=== PATIENT | female | born 1990 | race Hispanic/Latino ===

== ENCOUNTER 2017-09-24 10:55 | Emergency (ER) | payer BC, SELFPAY | END 2017-09-24 12:22 | disposition home or self-care (01) | LOC: ERS 10:55 | DX: N64.4 Mastodynia (principal); F17.210 Nicotine dependence, cigarettes, uncomplicated | CPT/HCPCS: 99283 ==

== ENCOUNTER 2018-01-06 18:50 | Emergency (ER) | payer SELFPAY ==
[~2018-01-06 18:50] MED LIST: ISOVUE-370 76%-LOCM 1 ML ONE
[2018-01-06 19:44] LABS: Bilirubin Negative (Negative); Blood, Urine Negative (Negative); Clarity CLEAR (Clear); Glucose, Urine (Dipstick) Negative (Negative); Leukocyte Negative (Negative); Nitrite Negative (Negative); Protein, Urine (Dipstick) Negative (Neg-Trace); Specific Gravity, Urine 1.016 (1.002-1.036); Urobilinogen 0.2 mg/dL (0.2-1.0)
[2018-01-06] MEDS ORDERED: Ondansetron ODT 8 MG TAB ONE (19:44)
[2018-01-06 19:53] LABS: Pregnancy Test - Urine (BHCG) Negative (Negative)
[2018-01-06 19:54] LABS: Pregu Control Background? CLEAR/WHITE (CLR/WHITE); Pregu Control Bar Appear? YES (CONTROL BAR); Specific Gravity 1.016 (1.002-1.036)
[2018-01-06 19:56] LABS: #Basophils 0.1 thou/uL (0.0-0.2); #Eosinphils 0.1 thou/uL (0.0-0.7); #Lymphocytes 3.8 thou/uL (1.20-3.40); #Monocytes 0.8 thou/uL (0.11-0.59); #Neutrophils 9.3 thou/uL (1.40-6.50); %Basophils 0.5 % (0.0-1.0); %Eosinophils 0.6 % (0.0-10.0); %Lymphocytes 27.1 % (21.0-51.0); %Monocytes 5.9 % (0.0-10.0); Hemoglobin 13.9 g/dL (12.0-16.0); Mean Corpuscular HGB CONC 32.8 g/dL (32.0-36.0); Mean Corpuscular Hemoglobin 27.1 pg (27.0-31.0); Mean Corpuscular Volume 82.8 fl (81.0-99.0); Mean Platelet Volume 7.6 fL (7.4-10.4); Platelet Count 358 thou/uL (130-400); RBC Distribution Width 13.1 % (11.5-14.5); Red Blood Cell (RBC) Count 5.11 mill/uL (4.20-5.40); White Blood Cell (WBC) Count 14.1 thou/uL (4.8-10.8)
[2018-01-06 20:17] LABS: ALT (SGPT) 17 U/L (8-55); AST (SGOT) 18 U/L (5-34); Albumin 4.3 g/dL (3.5-5.0); Alkaline Phosphatase 108 U/L (40-150); Anion Gap 11 mmol/L (10-20); BUN (Urea Nitrogen) 13 mg/dL (7.0-18.7); Bilirubin, Total 0.2 mg/dL (0.2-1.2); Calc. Creatinine Clearance 0 mL/min (70-130); Calcium 9.5 mg/dL (7.8-10.44); Carbon Dioxide 26 mmol/L (22-29); Chloride 106 mmol/L (98-107); Estimated GFR-MDRD Greater than 90; Globulin 3.1 g/dL (2.4-3.5); Glucose 92 mg/dL (70-105); Potassium 3.9 mmol/L (3.5-5.1); Protein, Total 7.4 g/dL (6.0-8.3); Sodium 139 mmol/L (136-145)
[2018-01-06] MEDS ORDERED: Ketorolac Tromethamine 30 MG/ML VIAL ONE (21:26)
--- NOTE | 2018-01-06 22:33 | ULT ---
PELVIC ULTRASOUND 01/06/18 COMPARISON: None. HISTORY: Left lower quadrant abdominal pain with fever and nausea. TECHNIQUE: Multiplanar pedroza scale and color doppler images were obtained in a transabdominal pelvic ultrasound. Spectral analysis of the doppler waveforms of the ovaries were performed. FINDINGS: The uterus is normal in size and appears without focal abnormality. the endometrial stripe is normal in thickness measuring 5 mm. No free fluid is seen in the pelvis. Both ovaries are normal in size and appearance and demonstrate n ormal internal flow. IMPRESSION: No significant pelvic abnormality. POS: [facility]
--- NOTE | 2018-01-06 23:01 | CT ---
CT ABDOMEN AND PELVIS WITH CONTRAST 01/06/18 COMPARISON: 06/20/11 HISTORY: Abdominal pain in the left lower quadrant that shoots to upper abdomen and down her leg. TECHNIQUE: Multiple contiguous axial images were obtained in a CT of the abdomen and pelvis with contrast. Coron al reformats were performed. FINDINGS: The liver, gallbladder, kidneys, adrenal glands, spleen, and pancreas are unremarkable. No free air, free fluid, or stranding changes seen in the abdomen or pelvis. There may be a few scattered diverticula in the colon. The small bowel and appendix are unremarkable. The reproductive organs are unremarkable. No abdominal or pelvic lymphadenopathy are seen. There is a genital piercing and bilateral nipple piercings, incidentally seen. The abdominal wall sof t tissue and visualized inferior thorax are otherwise unremarkable. The bones are unremarkable. IMPRESSION: No evidence of acute intra-abdominal/pelvic abnormality. POS: [facility]
== END 2018-01-06 23:34 | disposition home or self-care (01) ==
LOC: ERS 18:50
DX: N76.0 Acute vaginitis (principal); F17.210 Nicotine dependence, cigarettes, uncomplicated
CPT/HCPCS: 74177; 76856; 80053; 81003; 81025; 85025; 87086; 87480; 87491; 87510; 87591; 87660; 93976; 96361; 96374; J1885

== ENCOUNTER 2020-04-10 18:32 | Emergency (ER) | payer OTHER ==
[2020-04-10] MEDS ORDERED: Ketorolac Tromethamine 30 MG/ML VIAL ONE (19:32)
--- NOTE | 2020-04-10 19:32 | RAD ---
Exam:3 views left ankle HISTORY: Pain. COMPARISON: 09/09/2002 FINDINGS: Lateral soft tissue swelling. Intact ankle mortise. No fracture or cortical irregularity or periosteal reaction IMPRESSION: Lateral soft tissue swelling, without fracture.
== END 2020-04-10 19:43 | disposition home or self-care (01) ==
LOC: ERS 18:32
DX: S93.402A Sprain of unspecified ligament of left ankle, initial encounter (principal); Z87.891 Personal history of nicotine dependence; X50.9XXA Other and unspecified overexertion or strenuous movements or postures, initial encounter
CPT/HCPCS: 96372; J1885

== ENCOUNTER 2020-05-23 01:14 | Emergency (ER) | payer OTHER ==
[2020-05-23] MEDS ORDERED: Boostrix 0.5 ML (Tdap) VIAL ONE (01:43)
== END 2020-05-23 01:57 | disposition home or self-care (01) ==
LOC: ERS 01:14
DX: S01.511A Laceration without foreign body of lip, initial encounter (principal); F17.210 Nicotine dependence, cigarettes, uncomplicated; Y04.2XXA Assault by strike against or bumped into by another person, initial encounter
CPT/HCPCS: 90471; 90715

== ENCOUNTER 2021-04-15 08:22 | Emergency (ER) | payer OTHER ==
[2021-04-15] MEDS ORDERED: Dexamethasone 10 MG/ML VIAL ONE (08:46)
== END 2021-04-15 09:02 | disposition home or self-care (01) ==
LOC: ERS 08:22
DX: L50.9 Urticaria, unspecified (principal); F17.210 Nicotine dependence, cigarettes, uncomplicated
CPT/HCPCS: 96372; 99283; J1100

== ENCOUNTER 2021-06-28 18:02 | Emergency (ER) | payer SELFPAY ==
[2021-06-28] MEDS ORDERED: Methocarbamol 500 MG TAB PO SCH (19:30)
== END 2021-06-28 20:31 | disposition home or self-care (01) ==
LOC: ERS 18:02
DX: M54.16 Radiculopathy, lumbar region (principal); F17.210 Nicotine dependence, cigarettes, uncomplicated
CPT/HCPCS: 99283

== ENCOUNTER 2022-10-09 20:45 | Emergency (ER) | payer OTHER, SELFPAY | END 2022-10-10 00:37 | disposition left against medical advice (07) | LOC: ERS 20:45 | DX: Z53.21 Procedure and treatment not carried out due to patient leaving prior to being seen by health care provider (principal) ==

== ENCOUNTER 2023-04-30 20:40 | Emergency (ER) | payer OTHER ==
[2023-04-30] MEDS ORDERED: Mag-Al 1200 mg/1200 mg/30 ML UDCUP ONE (21:36)
[2023-04-30] MEDS ORDERED: Aspirin Chewable 81 MG TAB ONE (21:36)
[2023-04-30 21:41] LABS: #Basophils 0.1 thou/uL (0.0-0.2); #Eosinphils 0.3 thou/uL (0.0-0.7); #Monocytes 0.8 thou/uL (0.11-0.59); #Neutrophils 7.5 thou/uL (1.40-6.50); %Basophils 0.6 % (0.0-1.0); %Eosinophils 2.2 % (0.0-10.0); %Lymphocytes 29.7 % (21.0-51.0); %Monocytes 6.2 % (0.0-10.0); %Neutrophils 61.1 % (42.0-75.0); Hematocrit 41.6 % (36.0-47.0); Hemoglobin 13.7 g/dL (12.0-16.0); Mean Corpuscular HGB CONC 32.9 g/dL (32.0-36.0); Mean Corpuscular Hemoglobin 27.8 pg (27.0-31.0); Mean Corpuscular Volume 84.4 fl (78.0-98.0); Mean Platelet Volume 10.2 fL (7.4-10.4); Platelet Count 373 10x3/uL (130-400); RBC Distribution Width 13.2 % (11.5-14.5); Red Blood Cell (RBC) Count 4.93 mill/uL (4.20-5.40); White Blood Cell (WBC) Count 12.2 10x3/uL (4.8-10.8)
[2023-04-30] MEDS ORDERED: Lidocaine 2% Viscous Solution 10 ML, Aluminum & Magnesium Hydroxide 30 ML SSW SCH (21:45)
[2023-04-30 22:08] LABS: ALT (SGPT) 24 U/L (8-55); AST (SGOT) 18 U/L (5-34); Albumin 3.9 g/dL (3.5-5.0); Alkaline Phosphatase 101 U/L (40-110); Anion Gap 13 mmol/L (10-20); BUN (Urea Nitrogen) 15 mg/dL (7.0-18.7); Bilirubin, Total Less than 0.2 mg/dL (0.2-1.2); Calc. Creatinine Clearance 0 mL/min (70-130); Calcium 9.5 mg/dL (7.8-10.44); Carbon Dioxide 22 mmol/L (22-29); Chloride 106 mmol/L (98-107); Estimated GFR 109; Globulin 2.5 g/dL (2.4-3.5); Glucose 99 mg/dL (70-105); Potassium 4.2 mmol/L (3.5-5.1); Protein, Total 6.4 g/dL (6.0-8.3); Sodium 137 mmol/L (136-145)
[2023-04-30 22:12] LABS: Troponin I Less than 0.010 ng/mL (< 0.028)
[2023-04-30] MEDS ORDERED: Ketorolac Tromethamine 30 MG/ML VIAL ONE (22:51)
== END 2023-04-30 23:07 | disposition home or self-care (01) ==
LOC: ERS 20:40
DX: R07.9 Chest pain, unspecified (principal); R10.13 Epigastric pain; R10.11 Right upper quadrant pain
CPT/HCPCS: 71045; 76705; 80053; 84484; 85025; 93005; 96374; J1885

== ENCOUNTER 2024-06-06 07:04 | Emergency (ER) | payer MEDICAID ==
[2024-06-06] MEDS ORDERED: Dexamethasone 10 MG/ML VIAL ONE (08:53)
[2024-06-06] MEDS ORDERED: Diazepam 10 MG/2 ML SYRINGE ONE (08:53)
[2024-06-06] MEDS ORDERED: Ketorolac Tromethamine 30 MG (1 mL) VIAL ONE (08:53)
[2024-06-06 08:57] LABS: #Basophils 0.03 10x3/uL (0.0-0.2); %Basophils 0.4 % (0.0-1.0); %Eosinophils 1.3 % (0.0-10.0); %Lymphocytes 34.8 % (21.0-51.0); %Monocytes 4.7 % (0.0-10.0); %Neutrophils 58.4 % (42.0-75.0); Hematocrit 44.9 % (36.0-47.0); Hemoglobin 14.4 g/dL (12.0-16.0); Mean Corpuscular HGB CONC 32.1 g/dL (32.0-36.0); Mean Corpuscular Hemoglobin 27.2 pg (27.0-31.0); Mean Corpuscular Volume 84.9 fL (78.0-98.0); Mean Platelet Volume 10.2 fL (7.4-10.4); Platelet Count 359 10x3/uL (130-400); RBC Distribution Width 13.8 % (11.5-14.5); Red Blood Cell (RBC) Count 5.29 mill/uL (4.20-5.40)
[2024-06-06] MEDS ORDERED: Iopamidol-370 76% 500 ML MDV (1 ML CHARGE) ONE (09:08)
[2024-06-06 09:19] LABS: BHCG - Serum Negative (NEGATIVE); Pregs Control Background? CLEAR/WHITE (CLR/WHITE); Pregs Control Bar Appear? YES (CONTROL BAR)
[2024-06-06 09:25] LABS: ALT (SGPT) 33 U/L (8-55); AST (SGOT) 23 U/L (5-34); Albumin 3.6 g/dL (3.5-5.0); Alkaline Phosphatase 114 U/L (40-110); Anion Gap 10 mmol/L (10-20); BUN (Urea Nitrogen) 13 mg/dL (7.0-18.7); Bilirubin, Total 0.2 mg/dL (0.2-1.2); Calc. Creatinine Clearance 0 mL/min (70-130); Calcium 9.4 mg/dL (7.8-10.44); Carbon Dioxide 26 mmol/L (22-29); Chloride 108 mmol/L (98-107); Estimated GFR 101; Globulin 3.1 g/dL (2.4-3.5); Glucose 95 mg/dL (70-105); Potassium 4.3 mmol/L (3.5-5.1); Protein, Total 6.7 g/dL (6.0-8.3); Sodium 140 mmol/L (136-145)
[2024-06-06] MEDS ORDERED: HYDROcodone/Acetaminophen 5/325 mg Tablet ONE (11:59)
== END 2024-06-06 12:15 | disposition home or self-care (01) ==
LOC: ERS 07:04
DX: S39.012A Strain of muscle, fascia and tendon of lower back, initial encounter (principal); W55.12XA Struck by horse, initial encounter
CPT/HCPCS: 36415; 74177; 80053; 84703; 85025; 96374; 96375; J1100; J1885; J3360; Q9967

== ENCOUNTER 2024-06-13 14:51 | Emergency (ER) | payer MEDICAID, SELFPAY ==
[~2024-06-13 14:51] MED LIST changes: -ISOVUE-370 76%-LOCM 1 ML ONE; +Iopamidol-370 76% 500 ML MDV (1 ML CHARGE) ONE
[2024-06-13 15:33] LABS: #Basophils 0.04 10x3/uL (0.0-0.2); %Basophils 0.4 % (0.0-1.0); %Lymphocytes 23.2 % (21.0-51.0); %Monocytes 4.9 % (0.0-10.0); %Neutrophils 70.1 % (42.0-75.0); Hematocrit 40.8 % (36.0-47.0); Hemoglobin 12.8 g/dL (12.0-16.0); Mean Corpuscular HGB CONC 31.4 g/dL (32.0-36.0); Mean Corpuscular Hemoglobin 26.7 pg (27.0-31.0); Mean Corpuscular Volume 85.2 fL (78.0-98.0); Mean Platelet Volume 9.9 fL (7.4-10.4); Platelet Count 383 10x3/uL (130-400); Red Blood Cell (RBC) Count 4.79 mill/uL (4.20-5.40)
[2024-06-13 15:46] LABS: ALT (SGPT) 43 U/L (8-55); AST (SGOT) 29 U/L (5-34); Albumin 3.5 g/dL (3.5-5.0); Alkaline Phosphatase 106 U/L (40-110); Anion Gap 12 mmol/L (10-20); BUN (Urea Nitrogen) 11 mg/dL (7.0-18.7); Bilirubin, Total 0.2 mg/dL (0.2-1.2); Calc. Creatinine Clearance 0 mL/min (70-130); Calcium 9.9 mg/dL (7.8-10.44); Carbon Dioxide 23 mmol/L (22-29); Chloride 105 mmol/L (98-107); Estimated GFR 96; Globulin 3.4 g/dL (2.4-3.5); Glucose 123 mg/dL (70-105); Potassium 4.4 mmol/L (3.5-5.1); Protein, Total 6.9 g/dL (6.0-8.3); Sodium 136 mmol/L (136-145)
== END 2024-06-13 19:41 | disposition home or self-care (01) ==
LOC: ERS 14:51
DX: I80.8 Phlebitis and thrombophlebitis of other sites (principal); L03.113 Cellulitis of right upper limb
CPT/HCPCS: 36415; 80053; 85025; 85379; Q9967